=== PATIENT | female | born 1995 | race American Indian/Alaskan Native ===

== ENCOUNTER 2019-06-19 14:38 | Emergency (ER) | payer MEDICAID ==
--- NOTE | 2019-06-19 15:02 | Event Note ---
ED Screening Note ED Screening Note: ble pain and swelling and right sided pleuritic cp s side medical sent her due to dvt and pe concerns no sob HR 102 pmh DVT--to be on lovenix; but missed appointment; this was after csec-- was on xarelto for 1 months and ran out rx lovenox- missed antibiotic for uti fe lmp months ago due 11/08 [id number] This initial assessment/diagnostic orders/clinical plan/treatment(s) is/are subject to change based on patients health status, clinical progression and re- assessment by fellow clinical providers in the ED. Further treatment and workup at subsequent clinical providers discretion. Patient/guardian urged not to elope from the ED as their condition may be serious if not clinically assessed and managed. Initial orders include: labs US
--- NOTE | 2019-06-19 16:37 | Vascular Lab Report ---
DUPLEX DOPPLER LOWER EXTREMITY VEINS, BILATERAL INDICATION: Bilateral lower extremity edema. 4 months . TECHNIQUE: Duplex doppler imaging was performed through the veins of both lower extremities using venous alberto halle and other maneuvers. COMPARISON: None available. FINDINGS: Right Common femoral vein: Negative. Right Superficial femoral vein: Negative. Right Popliteal vein: Negative. Right Calf veins: Negative. Left Common femoral vein: Negative. Left Superficial femoral vein: Negative. Left Popliteal vein: Negative. Left Calf veins: Negative. Additional findings: There is no evidence of a popliteal cyst or other abnormality. IMPRESSION: No sonographic evidence for DVT in either lower extremity. Signer Name: Brennan Johnson MD Signed: 06/19/2019 4:32 PM Workstation Name: [id number]
[2019-06-19 17:09] LABS: Hematocrit 31.1 % (30.3-42.9); Hemoglobin 10.3 gm/dl (10.1-14.3); Mean Corpuscular HGB Conc 33 % (30-34); Mean Corpuscular Volume 74 fl (79-97); Platelet Count 306 K/mm3 (140-440); Red Cell Distribution Width 17.4 % (13.2-15.2)
--- NOTE | 2019-06-19 17:24 | Emergency Department Report ---
HPI - General Chief Complaint: Extremity Problem,Nontraumatic Time Seen by Provider: 06/19/19 14:58 - HPI HPI: 23-year-old female presents to the emergency department with a complaint of some pain in her bilateral legs, left greater than right. She says that mostly occurs when she first wakes up but will go away after she moves or stretches her legs. However he does have a previous history from a DVT status post in February 2017 and therefore she wanted to make sure that this was not another blood clot. She is not currently on any blood thinners. She is currently at about 19 weeks. She follows with [place] for [facility] [employer] and Dr. Sylvia Landry. She was seen there today and diagnosed with a urinary tract infection and has a prescription for antibiotics waiting for her at the pharmacy. She has no complaints of any pelvic pain, vaginal bleeding, vaginal discharge, nausea, vomiting or fever. She denies any swelling or skin color change to the legs. No recent travel. ED Past Medical Hx - Past Medical History Hx Hypertension: No Hx Diabetes: No Hx Deep Vein Thrombosis: Yes Hx Renal Disease: No Hx Sickle Cell Disease: No Hx Seizures: No Hx Asthma: No - Surgical History Past Surgical History?: Yes Additional Surgical History: C section - Social History Smoking Status: Current Every Day Smoker Substance Use Type: None - Medications Home Medications: Home Medications Medication Instructions Recorded Confirmed Last Taken Type Acetaminophen [Acetaminophen TAB] 500 mg PO Q4HR PRN #30 tablet 07/03/16 Unknown Rx Nitrofurantoin Edwards/M-Cryst 100 mg PO Q12HR #10 capsule 07/03/16 Unknown Rx [Macrobid CAP] Pnv No.95/Ferrous Fum/Folic AC 1 each PO DAILY #30 tablet 07/03/16 Unknown Rx [ Vitamin Tablet] ED Review of Systems ROS: Stated complaint: LFT SIDE PAIN/POSS BLOOD CLOT Other details as noted in HPI Comment: All other systems reviewed and negative Constitutional: denies: chills, fever Eyes: denies: eye pain, vision change ENT: denies: ear pain, throat pain Respiratory: denies: cough, shortness of breath Cardiovascular: denies: chest pain, palpitations Gastrointestinal: denies: abdominal pain, vomiting Genitourinary: denies: dysuria, discharge Musculoskeletal: myalgia. denies: joint swelling Skin: denies: rash, lesions Neurological: denies: headache, weakness, numbness Physical Exam - Physical Exam Vital Signs: Vital Signs 06/19/19 14:59 Temperature 98.3 F Pulse Rate 102 H Respiratory 18 Rate Blood Pressure 127/70 O2 Sat by Pulse 99 Oximetry Physical Exam: GENERAL: The patient is well-developed well-nourished. HENT: Normocephalic. Atraumatic. Patient has moist mucous membranes. EYES: Extraocular motions are intact. NECK: Supple. Trachea is midline. CHEST/LUNGS: Clear to auscultation. There is no respiratory distress noted. HEART/CARDIOVASCULAR: Regular. There is no tachycardia. There is no murmur. ABDOMEN: Abdomen is soft, nontender. Patient has normal bowel sounds. SKIN: Skin is warm and dry. NEURO: The patient is awake, alert, and oriented. The patient is cooperative. The patient has no focal neurologic deficits. The patient has normal speech. MUSCULOSKELETAL: There is no tenderness or deformity. There is no limitation range of motion. There is no evidence of acute injury. ED Course Vital Signs 06/19/19 14:59 Temperature 98.3 F Pulse Rate 102 H Respiratory 18 Rate Blood Pressure 127/70 O2 Sat by Pulse 99 Oximetry ED Medical Decision Making - Lab Data Result diagrams: 06/19/19 16:44 06/19/19 16:44 - EKG Data -: EKG Interpreted by Nd EKG shows normal: sinus rhythm, axis, intervals, QRS complexes, ST-T waves (t wave inversion to septal leads) Rate: normal - EKG Data When compared to previous EKG there are: previous EKG unavailable Interpretation: other (Sinus, t wave inversions to septal leads. No STEMI) - Radiology Data Radiology results: report reviewed DUPLEX DOPPLER LOWER EXTREMITY VEINS, BILATERAL INDICATION: Bilateral lower extremity edema. 4 months . TECHNIQUE: Duplex doppler imaging was performed through the veins of both lower extremities using venous compression and other maneuvers. COMPARISON: None available. FINDINGS: Right Common femoral vein: Negative. Right Superficial femoral vein: Negative. Right Popliteal vein: Negative. Right Calf veins: Negative. Left Common femoral vein: Negative. Left Superficial femoral vein: Negative. Left Popliteal vein: Negative. Left Calf veins: Negative. Additional findings: There is no evidence of a popliteal cyst or other abnormality. IMPRESSION: No sonographic evidence for DVT in either lower extremity. - Medical Decision Making This patient was sent in by her [employer] service for some leg pain that she's been having to rule out a DVT. She does have a history of a DVT status post C-se ction 2 years ago. She denies any swelling or skin color change. At this time, she actually denies any pain whatsoever. She thinks it could be related to her mattress or how she is sleeping. The pains worsen or begin forcing in the morning and seemed to improve when she moves around or stretches the legs. Bilateral lower extremity venous Dopplers were completed that were negative for signs of acute DVT. Her labs were unremarkable CBC and BMP. The patient had her evaluated at the [facility] [employer] office earlier today and she denies any pelvic pain, vaginal bleeding or discharge, abdominal pain. Vital signs stable throughout her ED course. For some reason, the patient had an EKG done through triage that does not show any signs of ST elevation SD. Patient will return to the emergency Department with any worsening of her symptoms or any acute distress. - Differential Diagnosis DVT, muscle spasms, dehydration, electrolyte abnormalities Critical Care Time: No Critical care attestation.: If time is entered above; I have spent that time in minutes in the direct care of this critically ill patient, excluding procedure time. ED Disposition Clinical Impression: Qualifiers: Weeks of gestation: 19 weeks Qualified Code(s): Z3A.19 - 19 weeks gestation of Thigh pain Qualifiers: Laterality: left Qualified Code(s): M79.652 - Pain in left thigh Disposition: DC-01 TO HOME OR SELFCARE Is pt being admited?: No Condition: Stable Instructions: (ED), Arthralgia (ED) Additional Instructions: Please follow-up with your primary care physician and [employer]. Continue taking your vitamins. You can take Tylenol, using weight-based dosing on the back of the bottle, as needed for any discomfort. Return to the emergency Department with any worsening of your symptoms or any acute distress. Referrals: [facility] [Outside] - 2-3 Days Time of Disposition: 18:25
[2019-06-19 18:00] LABS: Alanine Aminotransferase 5 units/L (7-56); Albumin 3.7 g/dL (3.9-5); BUN/Creatinine Ratio 12; Blood Urea Nitrogen 6 mg/dL (7-17); Calcium 9.2 mg/dL (8.4-10.2); Hemolysis Index 9
[2019-06-19 19:40] VITALS: BP 107/56
== END 2019-06-19 17:30 | disposition home or self-care (01) ==
LOC: ED 14:38
DX: O26.892 Other specified pregnancy related conditions, second trimester (principal); M79.604 Pain in right leg; M79.605 Pain in left leg; M79.652 Pain in left thigh; O99.331 Smoking (tobacco) complicating pregnancy, first trimester; Z86.718 Personal history of other venous thrombosis and embolism; Z79.01 Long term (current) use of anticoagulants; Z79.899 Other long term (current) drug therapy
CPT/HCPCS: 36415; 80053; 85027; 93005; 93010; 93970

== ENCOUNTER 2019-11-14 20:47 | Emergency (ER) | payer MEDICAID ==
[2019-11-14 22:57] VITALS: BP 177/105
[2019-11-14 23:35] LABS: Basophils % (Auto) 0.6 % (0.0-1.8); Eosinophils % (Auto) 0.5 % (0.0-4.3); Hematocrit 31.7 % (30.3-42.9); Lymphocytes # (Auto) 1.2 K/mm3 (1.2-5.4); Lymphocytes % (Auto) 16.7 % (13.4-35.0); Mean Corpuscular HGB Conc 32 % (30-34); Mean Corpuscular Volume 71 fl (79-97); Monocytes # (Auto) 0.6 K/mm3 (0.0-0.8); Monocytes % (Auto) 8.8 % (0.0-7.3); Platelet Count 342 K/mm3 (140-440); Red Blood Count 4.47 M/mm3 (3.65-5.03); Red Cell Distribution Width 17.7 % (13.2-15.2)
[2019-11-14 23:58] LABS: Alanine Aminotransferase 11 units/L (7-56); BUN/Creatinine Ratio 18; Blood Urea Nitrogen 11 mg/dL (7-17); Calcium 9.3 mg/dL (8.4-10.2); Hemolysis Index 0
[2019-11-15 00:38] LABS: Bacteria,Urine 1+ /HPF (Negative); Bilirubin,Urine NEG (Negative); Blood,Urine SM (Negative); Color,Urine Yellow (Yellow); Mucus,Urine 1+ /HPF; Protein,Urine <15 mg/dL mg/dL (Negative); Urobilinogen,Urine < 2.0 mg/dL (<2.0)
--- NOTE | 2019-11-15 02:06 | Emergency Department Report ---
ED General Adult HPI - General Chief complaint: Wound/Laceration Stated complaint: POST C SECTION DRAINAGE Time Seen by Provider: 11/15/19 01:47 Source: patient Mode of arrival: Ambulatory Limitations: No Limitations - History of Present Illness Initial comments: Patient is a 24-year-old Russian female is presenting with 2 complaints. Complaint #1 is that the patient has right sided toothache with some swelling to the jaw that started yesterday. Patient states she had a cracked tooth in this area for some time however there is now swelling and pain which tries to chew. She denies nausea vomiting difficulty swallowing fevers or chills. She does state that the pain radiates to the right ear and has caused her to have a generalized headache as well. Complaint #2 is that she had a on 10/31/2019. Patient states that the left lateral area which has opened and is currently draining fluid. States she has no pain. - Related Data Previous Rx's Medication Instructions Recorded Last Taken Type Acetaminophen [Acetaminophen TAB] 500 mg PO Q4HR PRN #30 tablet 07/03/16 Unknown Rx Nitrofurantoin Tillman/M-Cryst 100 mg PO Q12HR #10 capsule 07/03/16 Unknown Rx [Macrobid CAP] Pnv No.95/Ferrous Fum/Folic AC 1 each PO DAILY #30 tablet 07/03/16 Unknown Rx [ Vitamin Tablet] Ferrous Sulfate [Feosol 325 MG tab] 325 mg PO BID #60 tablet 11/02/19 Unknown Rx HYDROcodone/APAP 5-325 [Gibson 1 each PO Q6HR PRN #30 tablet 11/02/19 Unknown Rx 5-325 mg TAB] Ibuprofen [Motrin 800 MG tab] 800 mg PO Q6H PRN #30 tablet 11/02/19 Unknown Rx Vit-Fe Fumar-FA [ 1 each PO QDAY #30 tablet 11/02/19 Unknown Rx Vitamin] Clindamycin [Clindamycin CAP] 300 mg PO Q8H #21 cap 11/15/19 Unknown Rx Ibuprofen [Motrin 600 MG tab] 600 mg PO Q8H PRN #20 tablet 11/15/19 Unknown Rx Allergies Allergy/AdvReac Type Severity Reaction Status Date / Time No Known Allergies Allergy Verified 07/02/16 23:42 ED Review of Systems ROS: Stated complaint: POST C SECTION DRAINAGE Other details as noted in HPI Comment: All other systems reviewed and negative ED Past Medical Hx - Past Medical History Previous Medical History?: No Hx Hypertension: No Hx Heart Attack/AMI: No Hx Diabetes: No Hx Deep Vein Thrombosis: No Hx Liver Disease: No Hx Renal Disease: No Hx Sickle Cell Disease: No Hx Seizures: No Hx Asthma: No Hx COPD: No Hx HIV: No - Surgical History Past Surgical History?: Yes Hx Pacemaker: No Hx Internal Defibrillator: No Additional Surgical History: C section - Social History Smoking Status: Never Smoker Substance Use Type: None - Medications Home Medications: Home Medications Medication Instructions Recorded Confirmed Last Taken Type Acetaminophen [Acetaminophen TAB] 500 mg PO Q4HR PRN #30 tablet 07/03/16 10/30/19 Unknown Rx Nitrofurantoin Tillman/M-Cryst 100 mg PO Q12HR #10 capsule 07/03/16 10/30/19 Unknown Rx [Macrobid CAP] Pnv No.95/Ferrous Fum/Folic AC 1 each PO DAILY #30 tablet 07/03/16 10/30/19 Unknown Rx [ Vitamin Tablet] Ferrous Sulfate [Feosol 325 MG tab] 325 mg PO BID #60 tablet 11/02/19 Unknown Rx HYDROcodone/APAP 5-325 [Gibson 1 each PO Q6HR PRN #30 tablet 11/02/19 Unknown Rx 5-325 mg TAB] Ibuprofen [Motrin 800 MG tab] 800 mg PO Q6H PRN #30 tablet 11/02/19 Unknown Rx Vit-Fe Fumar-FA [ 1 each PO QDAY #30 tablet 11/02/19 Unknown Rx Vitamin] Clindamycin [Clindamycin CAP] 300 mg PO Q8H #21 cap 11/15/19 Unknown Rx Ibuprofen [Motrin 600 MG tab] 600 mg PO Q8H PRN #20 tablet 11/15/19 Unknown Rx ED Physical Exam - General Limitations: No Limitations General appearance: alert, in no apparent distress - Head Head exam: Present: atraumatic, normocephalic - Expanded Head Exam Expanded 1 - With tenderness and swelling at the angle of the jaw. - Eye Eye exam: Present: normal appearance - ENT ENT exam: Present: mucous membranes moist - Expanded ENT Exam Expanded 1 - Fractured, Dental Tenderness - Neck Neck exam: Present: normal inspection - Respiratory Respiratory exam: Present: normal lung sounds bilaterally. Absent: respiratory distress, wheezes, rales, rhonchi - Cardiovascular Cardiovascular Exam: Present: regular rate, normal rhythm, normal heart sounds. Absent: systolic murmur, diastolic murmur, rubs, gallop - GI/Abdominal GI/Abdominal exam: Present: soft, normal bowel sounds, other (patient has a healing section scar. There is 2 cm wound dehiscence on the left lateral edge. There is no purulent drainage. There is some serous fluid on the gauze is overlying the wound. Good granulation tissue present.). Absent: distended, tenderness, guarding - Extremities Exam Extremities exam: Present: normal inspection - Back Exam Back exam: Present: normal inspection - Neurological Exam Neurological exam: Present: alert, oriented X3 - Psychiatric Psychiatric exam: Present: normal affect, normal mood - Skin Skin exam: Present: warm, dry, intact, normal color. Absent: rash ED Course Vital Signs 11/14/19 22:28 Temperature 99.0 F Pulse Rate 86 Respiratory 18 Rate Blood Pressure 177/105 O2 Sat by Pulse 99 Oximetry ED Medical Decision Making - Lab Data Result diagrams: 11/14/19 23:06 11/14/19 23:06 Lab Results 11/14/19 11/14/19 11/15/19 Range/Units 23:06 23:06 00:02 WBC 6.9 (4.5-11.0) K/mm3 RBC 4.47 (3.65-5.03) M/mm3 Hgb 10.0 L (10.1-14.3) gm/dl Hct 31.7 (30.3-42.9) % MCV 71 L (79-97) fl MCH 22 L (28-32) pg MCHC 32 (30-34) % RDW 17.7 H (13.2-15.2) % Plt Count 342 (140-440) K/mm3 Lymph % (Auto) 16.7 (13.4-35.0) % Tillman % (Auto) 8.8 H (0.0-7.3) % Eos % (Auto) 0.5 (0.0-4.3) % Baso % (Auto) 0.6 (0.0-1.8) % Lymph # 1.2 (1.2-5.4) K/mm3 Tillman # 0.6 (0.0-0.8) K/mm3 Eos # 0.0 (0.0-0.4) K/mm3 Baso # 0.0 (0.0-0.1) K/mm3 Seg Neutrophils % 73.4 H (40.0-70.0) % Seg Neutrophils # 5.1 (1.8-7.7) K/mm3 Sodium 143 (137-145) mmol/L Potassium 4.1 (3.6-5.0) mmol/L Chloride 106.5 (98-107) mmol/L Carbon Dioxide 21 L (22-30) mmol/L Anion Gap 20 mmol/L BUN 11 (7-17) mg/dL Creatinine 0.6 L (0.7-1.2) mg/dL Estimated GFR > 60 ml/min BUN/Creatinine Ratio 18 % Glucose 92 (65-100) mg/dL Calcium 9.3 (8.4-10.2) mg/dL Magnesium 2.00 (1.7-2.3) mg/dL Total Bilirubin 0.30 (0.1-1.2) mg/dL AST 16 (5-40) units/L ALT 11 (7-56) units/L Alkaline Phosphatase 78 (35-129) units/L Total Protein 6.9 (6.3-8.2) g/dL Albumin 4.0 (3.9-5) g/dL Albumin/Globulin Ratio 1.4 % Urine Color Yellow (Yellow) Urine Turbidity Slightly-cloudy (Clear) Urine pH 5.0 (5.0-7.0) Ur Specific Radisson 1.021 (1.003-1.030) Urine Protein <15 mg/dl (Negative) mg/dL Urine Glucose (UA) Neg (Negative) mg/dL Urine Ketones Neg (Negative) mg/dL Urine Blood Sm (Negative) Urine Nitrite Neg (Negative) Urine Bilirubin Neg (Negative) Urine Urobilinogen < 2.0 (<2.0) mg/dL Ur Leukocyte Esterase Neg (Negative) Urine WBC (Auto) 5.0 (0.0-6.0) /HPF Urine RBC (Auto) 5.0 (0.0-6.0) /HPF U Epithel Cells (Auto) 2.0 (0-13.0) /HPF Urine Bacteria (Auto) 1+ (Negative) /HPF Urine Mucus 1+ /HPF - Medical Decision Making Regarding the patient's elevated blood pressure the patient had a urinalysis done to rule out proteinuria. There is no proteins found. Patient's elevated blood pressure likely secondary to pain from her dental abscess with facial cellulitis. After receiving pain control in the waiting room the patient's blood pressure was 110/60 repeat vital signs. Patient has normal white count is no evidence of infection to her scar. There is some slight wound dehiscence. Steri-Strips were used to hold the skin edges and good approximation. Patient be discharged home. Patient will be treated for dental abscess with facial cellulitis and will be referred to oral surgery. Critical care attestation.: If time is entered above; I have spent that time in minutes in the direct care of this critically ill patient, excluding procedure time. ED Disposition Clinical Impression: Facial cellulitis, Dental abscess, Wound dehiscence Disposition: TO HOME OR SELFCARE Is pt being admited?: No Does the pt Need Aspirin: No Condition: Stable Instructions: Acute Wound Care (ED), Dental Abscess (ED) Referrals: GEOFF HARMAN D[facility] [Staff Physician] - 3-5 Days Time of Disposition: 02:07
[2019-11-15] MEDS: IBUPROFEN 800 MG TAB PO ONE ×2 (02:49→03:01)
== END 2019-11-15 03:01 | disposition home or self-care (01) ==
LOC: ED 20:47
DX: T81.30XA Disruption of wound, unspecified, initial encounter (principal); K04.7 Periapical abscess without sinus; L03.211 Cellulitis of face; X58.XXXA Exposure to other specified factors, initial encounter
CPT/HCPCS: 36415; 80053; 81001; 83735; 85025

== ENCOUNTER 2021-02-07 17:19 | Emergency (ER) | payer MEDICAID ==
[2021-02-07 17:36] VITALS: BP 147/78
--- NOTE | 2021-02-07 20:52 | Emergency Department Report ---
ED General Adult HPI - General Chief complaint: Chest Pain Stated complaint: CHEST PAIN/LT ARM/LEG PAIN/HEADACHE Time Seen by Provider: 02/07/21 20:46 Source: patient, family Mode of arrival: Ambulatory Limitations: No Limitations - History of Present Illness Initial comments: Patient is a 25-year-old -[place] female with no known medical history 5-pack-year smoker occasional EtOH who presents for cough chest pain with cough stress. Patient states symptoms of chest pain exacerbated by worrying and anxiety patient states history of the same for the past month. Patient states occasional alcohol smokes cigarettes no marijuana. There is been no fever, chills, there is no nausea vomiting, no diaphoresis, no dizziness or lightheadedness. Last menstrual cycle 2 weeks ago. Patient states she felt like this when with previous 1 year ago. Severity scale (0 -10): 5 - Related Data Previous Rx's Medication Instructions Recorded Last Taken Type Acetaminophen [Acetaminophen TAB] 500 mg PO Q4HR PRN #30 tablet 07/03/16 Unknown Rx Nitrofurantoin [place]/M-Cryst 100 mg PO Q12HR #10 capsule 07/03/16 Unknown Rx [Macrobid CAP] Pnv No.95/Ferrous Fum/Folic AC 1 each PO DAILY #30 tablet 07/03/16 Unknown Rx [ Vitamin Tablet] Ferrous Sulfate [Feosol 325 MG tab] 325 mg PO BID #60 tablet 11/02/19 Unknown Rx HYDROcodone/APAP 5-325 [[place] 1 each PO Q6HR PRN #30 tablet 11/02/19 Unknown Rx 5-325 mg TAB] Ibuprofen [Motrin 800 MG tab] 800 mg PO Q6H PRN #30 tablet 11/02/19 Unknown Rx Vit-Fe Fumar-FA [ 1 each PO QDAY #30 tablet 11/02/19 Unknown Rx Vitamin] Clindamycin [Clindamycin CAP] 300 mg PO Q8H #21 cap 11/15/19 Unknown Rx Ibuprofen [Motrin 600 MG tab] 600 mg PO Q8H PRN #20 tablet 11/15/19 Unknown Rx Ibuprofen [Motrin 800 MG tab] 800 mg PO Q8HR PRN #30 tablet 02/07/21 Unknown Rx Allergies Allergy/AdvReac Type Severity Reaction Status Date / Time No Known Allergies Allergy Verified 07/02/16 23:42 ED Review of Systems ROS: Stated complaint: CHEST PAIN/LT ARM/LEG PAIN/HEADACHE Other details as noted in HPI Constitutional: denies: chills, fever, malaise Eyes: denies: eye pain, eye discharge, vision change ENT: denies: ear pain, throat pain Respiratory: cough. denies: shortness of breath, wheezing Cardiovascular: chest pain Endocrine: no symptoms reported Gastrointestinal: denies: abdominal pain, nausea, vomiting, diarrhea Genitourinary: denies: urgency, dysuria, discharge Musculoskeletal: back pain (right low back pain ). denies: joint swelling, arthralgia Skin: denies: rash, lesions Neurological: headache. denies: weakness, paresthesias, vertigo Psychiatric: denies: anxiety, depression Hematological/Lymphatic: denies: easy bleeding, easy bruising ED Past Medical Hx - Past Medical History Hx Hypertension: No Hx Heart Attack/AMI: No Hx Diabetes: No Hx Deep Vein Thrombosis: Yes Hx Liver Disease: No Hx Renal Disease: No Hx Sickle Cell Disease: No Hx Seizures: No Hx Asthma: No Hx COPD: No Hx HIV: No - Surgical History Hx Pacemaker: No Hx Internal Defibrillator: No Additional Surgical History: C section - Social History Smoking Status: Never Smoker Substance Use Type: None - Medications Home Medications: Home Medications Medication Instructions Recorded Confirmed Last Taken Type Acetaminophen [Acetaminophen TAB] 500 mg PO Q4HR PRN #30 tablet 07/03/16 10/30/19 Unknown Rx Nitrofurantoin [place]/M-Cryst 100 mg PO Q12HR #10 capsule 07/03/16 10/30/19 Unknown Rx [Macrobid CAP] Pnv No.95/Ferrous Fum/Folic AC 1 each PO DAILY #30 tablet 07/03/16 10/30/19 Unknown Rx [ Vitamin Tablet] Ferrous Sulfate [Feosol 325 MG tab] 325 mg PO BID #60 tablet 11/02/19 Unknown Rx HYDROcodone/APAP 5-325 [[place] 1 each PO Q6HR PRN #30 tablet 11/02/19 Unknown Rx 5-325 mg TAB] Ibuprofen [Motrin 800 MG tab] 800 mg PO Q6H PRN #30 tablet 11/02/19 Unknown Rx Vit-Fe Fumar-FA [ 1 each PO QDAY #30 tablet 11/02/19 Unknown Rx Vitamin] Clindamycin [Clindamycin CAP] 300 mg PO Q8H #21 cap 11/15/19 Unknown Rx Ibuprofen [Motrin 600 MG tab] 600 mg PO Q8H PRN #20 tablet 11/15/19 Unknown Rx Ibuprofen [Motrin 800 MG tab] 800 mg PO Q8HR PRN #30 tablet 02/07/21 Unknown Rx ED Physical Exam - General Limitations: No Limitations General appearance: alert, in no apparent distress - Head Head exam: Present: normocephalic, normal inspection - Eye Eye exam: Present: normal appearance, PERRL, EOMI Pupils: Present: normal accommodation - ENT ENT exam: Present: mucous membranes moist - Neck Neck exam: Present: normal inspection, full ROM. Absent: tenderness, lymphadenopathy - Respiratory Respiratory exam: Present: normal lung sounds bilaterally, chest wall tenderness (anterior lateral chest wall pain to deep palpation , no bruising, no crepitus, no stepoff ). Absent: respiratory distress, wheezes, stridor - Cardiovascular Cardiovascular Exam: Present: regular rate, normal rhythm, normal heart sounds. Absent: systolic murmur, diastolic murmur, rubs, gallop - GI/Abdominal GI/Abdominal exam: Present: soft, normal bowel sounds - Rectal Rectal exam: Present: deferred - Extremities Exam Extremities exam: Present: normal inspection, full ROM, normal capillary refill. Absent: tenderness, pedal edema, calf tenderness - Back Exam Back exam: Present: normal inspection, full ROM. Absent: tenderness, CVA tenderness (R), CVA tenderness (L) - Neurological Exam Neurological exam: Present: alert, oriented X3, CN II-XII intact, normal gait - Expanded Neurological Exam Expanded Patient oriented to: Present: person, place, time Speech: Present: fluid speech Motor strength exam: RUE: 5, LUE: 5, RLE: 5, LLE: 5 Best Eye Response (Stephanie): (4) open spontaneously Best Motor Response ([place]): (6) obeys commands Best Verbal Response ([place]): (5) oriented Stephanie Total: 15 - Psychiatric Psychiatric exam: Present: normal affect, normal mood - Skin Skin exam: Present: warm, dry, intact, normal color. Absent: rash ED Course Vital Signs 02/07/21 17:35 Temperature 98.8 F Pulse Rate 93 H Respiratory 20 Rate Blood Pressure 147/78 [Right] O2 Sat by Pulse 99 Oximetry ED Medical Decision Making - Lab Data Labs 02/07/21 Unknown Urine Color Yellow Urine Turbidity Slightly-cloudy Urine pH 6.0 Ur Specific [place] 1.017 Urine Protein <15 mg/dl Urine Glucose (UA) Neg Urine Ketones Neg Urine Blood Mod Urine Nitrite Neg Urine Bilirubin Neg Urine Urobilinogen 2.0 Ur Leukocyte Esterase Neg Urine WBC (Auto) 1.0 Urine RBC (Auto) 15.0 U Epithel Cells (Auto) 14.0 H Urine Mucus Few Urine Yeast (Budding) Few Urine HCG, Qual Negative - EKG Data EKG shows normal: sinus rhythm, axis, intervals, QRS complexes Rate: normal - EKG Data When compared to previous EKG there are: previous EKG unavailable Interpretation: normal EKG (NSR no ST Elevated NC , EKG interp by ED attending ) - Radiology Data Radiology results: report reviewed, image reviewed Ordering Physician: FEDERICO PACE NP Date of Service: 02/07/21 Procedure(s): XR chest routine 2V Accession Number(s): [id number] cc: FEDERICO PACE NP Fluoro Time In Minutes: CHEST 2 VIEWS INDICATION / CLINICAL INFORMATION: chest pain. COMPARISON: None available. FINDINGS: SUPPORT DEVICES: None. HEART / MEDIASTINUM: No significant abnormality. LUNGS / PLEURA: No significant pulmonary or pleural abnormality. No pneumothora x. ADDITIONAL FINDINGS: No significant additional findings. IMPRESSION: 1. No acute findings. Signer Name: Sen Ferrera MD Signed: 02/07/2021 10:49 PM Workstation Name: [id number] Transcribed By: SS Dictated By: Sen Ferrera MD Electronically Authenticated By: Sen Ferrera MD Signed Date/Time: 02/07/212248 DD/ 48 TD/TT: Print Cancel - Medical Decision Making Chest x-ray normal, urine normal, EKG normal sinus rhythm no ST elevated NC. This is likely stress or anxiety patient is currently alert oriented x3 there is no shortness of breath, chest pain, nausea vomiting, diaphoresis, no headache or dizziness, patient denies chest pain at this time. There is no cough fever or chills. Plan NSAIDs as needed chest wall pain. follow-up with primary care doctor in 2 to 3 days. Patient verbalized agreement and understanding of discharge plan. Patient DC'd home in stable condition at this time. Critical care attestation.: If time is entered above; I have spent that time in minutes in the direct care of this critically ill patient, excluding procedure time. ED Disposition Clinical Impression: Atypical chest pain, Stress Disposition: DC-01 TO HOME OR SELFCARE Is pt being admited?: No Does the pt Need Aspirin: No Condition: Stable Instructions: Nonspecific Chest Pain, Adult, [id number] Prescriptions: Ibuprofen [Motrin 800 MG tab] 800 mg PO Q8HR PRN #30 tablet PRN Reason: pain Referrals: JENNI MILLER MD [Primary Care Provider] - 3-5 Days Forms: Work/School Release Form(ED) Time of Disposition: 23:15
[2021-02-07 22:19] LABS: Bilirubin,Urine NEG (Negative); Blood,Urine MOD (Negative); Color,Urine Yellow (Yellow); Mucus,Urine FEW /HPF; Protein,Urine <15 mg/dL mg/dL (Negative)
[2021-02-07 22:24] LABS: HCG Qualitative,Urine Negative (Negative)
--- NOTE | 2021-02-07 22:54 | XRay Report ---
CHEST 2 VIEWS INDICATION / CLINICAL INFORMATION: chest pain. COMPARISON: None available. FINDINGS: SUPPORT DEVICES: None. HEART / MEDIASTINUM: No significant abnormality. LUNGS / PLEURA: No significant pulmonary or pleural abnormality. No pneumothorax. ADDITIONAL FINDINGS: No significant additional findings. IMPRESSION: 1. No acute findings. Signer Name: Sen Ferrera MD Signed: 02/07/2021 10:49 PM Workstation Name: [id number]
--- NOTE | 2021-02-08 12:10 | Electrocardiograph Report ---
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
== END 2021-02-07 23:00 | disposition home or self-care (01) ==
LOC: ED 17:19
DX: R07.89 Other chest pain (principal); F43.9 Reaction to severe stress, unspecified; Z79.899 Other long term (current) drug therapy
CPT/HCPCS: 71046; 81001; 81025; 93005

== ENCOUNTER 2021-10-08 19:21 | Observation (INO) | payer MEDICAID ==
[2021-10-08] MEDS ORDERED: LACTATED RINGERS 1,000 ML IV ONE (20:27)
[2021-10-08 20:29] LABS: Bilirubin,Urine NEG (Negative); Blood,Urine NEG (Negative); Color,Urine Yellow (Yellow); Mucus,Urine FEW /HPF; Protein,Urine <15 mg/dL mg/dL (Negative)
[2021-10-08 20:43] LABS: Amphetamine Screen,Urine Negative; Benzodiazepines Screen,Urine Negative; Cannabinoid Screen,Urine Negative; Cocaine Screen,Urine Negative; Methadone Screen,Urine Negative; Opiate Screen,Urine Negative
--- NOTE | 2021-10-08 22:30 | Ultrasound Report ---
ULTRASOUND OBSTETRIC COMPLETE/BIOPHYSICAL PROFILE INDICATION / CLINICAL INFORMATION: BRINA, EFW, EGA/EDC, check placenta and scar. Clinical Gestational Age (GA) in weeks.days: 37.3 TECHNIQUE: Transabdominal. COMPARISON: None available. FINDINGS: NUMBER: Single PRESENTATION: cephalic PLACENTA: anterior and free of the os. MATERNAL ADNEXA: No significant abnormality. AMNIOTIC FLUID VOLUME: normal AMNIOTIC FLUID INDEX (BRINA) in cm (if measured): 11.6 ANATOMY: Not performed. MEASUREMENTS: - Biparietal Diameter = 9.0 cm = 36.2 weeks.days - Head Circumference = 31.7 cm = 35.5 weeks.days - Abdominal Circumference = 30.5 cm = 34.3 weeks.days - Femur Length = 6.9 cm = 35.3 weeks.days - Estimated Weight (in grams, if calculated): 2577 - Heart Rate (beats per minute): 172 ADDITIONAL FINDINGS: None. AVERAGE ULTRASOUND AGE (AUA) in weeks.days = 35.3 Biophysical profile is normal at 8/8. IMPRESSION: 1. Single intrauterine with AUA of 35.3 weeks.days 2. Estimated weight 2577 g. 3. Placenta is anteriorly located and free of the os. 4. Amniotic fluid index is 11.6 cm. 5. Biophysical profile is normal at 8/8. Signer Name: Zac Peres MD Signed: 10/08/2021 10:26 PM Workstation Name: [id number]
[2021-10-08 22:58] LABS: Alanine Aminotransferase 7 units/L (7-56); Albumin 3.3 g/dL (3.9-5); Blood Urea Nitrogen 7 mg/dL (7-17); Calcium 8.9 mg/dL (8.4-10.2); Hemolysis Index 6
[2021-10-08 23:08] LABS: BUN/Creatinine Ratio 12
[2021-10-08 23:11] LABS: Basophils # (Auto) 0.2 K/mm3 (0.0-0.1); Basophils % (Auto) 2.7 % (0.0-1.8); Eosinophils % (Auto) 0.1 % (0.0-4.3); Hematocrit 28.7 % (30.3-42.9); Lymphocytes # (Auto) 1.1 K/mm3 (1.2-5.4); Lymphocytes % (Auto) 16.1 % (13.4-35.0); Mean Corpuscular HGB Conc 31 % (30-34); Mean Corpuscular Volume 72 fl (79-97); Monocytes # (Auto) 0.6 K/mm3 (0.0-0.8); Monocytes % (Auto) 8.8 % (0.0-7.3); Platelet Count 293 K/mm3 (140-440); Red Blood Count 3.98 M/mm3 (3.65-5.03); Red Cell Distribution Width 16.4 % (13.2-15.2)
[2021-10-08 23:29] LABS: INR 0.9 (0.87-1.13); Partial Thromboplastin Time 26.9 Sec. (24.2-36.6)
[2021-10-09] MEDS ORDERED: METOCLOPRAMIDE 10 MG/2 ML INJ IV ONE (00:30)
[2021-10-09] MEDS ORDERED: LACTATED RINGERS 1,000 ML IV SCH (00:30)
[2021-10-09] MEDS ORDERED: BICITRA ORAL LIQD 30ML PO ONE (00:30)
[2021-10-09] MEDS ORDERED: FAMOTIDINE 20 MG/2 ML INJ IV ONE (00:30)
--- NOTE | 2021-10-09 00:41 | History and Physical Report ---
History of Present Illness Date of examination: 10/09/21 Date of admission: 10/09/21 Chief complaint: abdominal pain that started at 5pm on 10/08/21 History of present illness: at 37.1wks by EDC 10/29/21 per pt report. Pt c/o intermittent abdominal pain, denies LOF or vag bleed. Pt also states that she has a history of DVT to one leg for which she was diagnosed after her first preg but did not get the lovenox since March 2021 for this . Pt denies chest pain, calf pain or shortness of breath. Pt had her last meal at about 5-6pm. Nurse notified me of sometimes FHR tracing with periods of 170-180's and loss of contact and the contractions every 2-3min Past History Past Medical History: other (morbid obesity and DVT to unilateral lower extremity) Past Surgical History: section (x2) Social history: smoking (quit in 12/2020) - Obstetrical History Expected Date of Delivery: 10/29/21 Actual Gestation: 37 Week(s) 1 Day(s) : 4 Hx # Term Pregnancies: 2 Spontaneous Abortions: 1 Number of Living Children: 2 Medications and Allergies Allergies Allergy/AdvReac Type Severity Reaction Status Date / Time No Known Allergies Allergy Verified 07/02/16 23:42 Home Medications Medication Instructions Recorded Confirmed Last Taken Type Acetaminophen [Acetaminophen TAB] 500 mg PO Q4HR PRN #30 tablet 07/03/16 10/30/19 Unknown Rx Nitrofurantoin [place]/M-Cryst 100 mg PO Q12HR #10 capsule 07/03/16 10/30/19 Unknown Rx [Macrobid CAP] Pnv No.95/Ferrous Fum/Folic AC 1 each PO DAILY #30 tablet 07/03/16 10/30/19 Unknown Rx [ Vitamin Tablet] Ferrous Sulfate [Feosol 325 MG tab] 325 mg PO BID #60 tablet 11/02/19 Unknown Rx HYDROcodone/APAP 5-325 [[place] 1 each PO Q6HR PRN #30 tablet 11/02/19 Unknown Rx 5-325 mg TAB] Ibuprofen [Motrin 800 MG tab] 800 mg PO Q6H PRN #30 tablet 11/02/19 Unknown Rx Vit-Fe Fumar-FA [ 1 each PO QDAY #30 tablet 11/02/19 Unknown Rx Vitamin] Clindamycin [Clindamycin CAP] 300 mg PO Q8H #21 cap 11/15/19 Unknown Rx Ibuprofen [Motrin 600 MG tab] 600 mg PO Q8H PRN #20 tablet 11/15/19 Unknown Rx Ibuprofen [Motrin 800 MG tab] 800 mg PO Q8HR PRN #30 tablet 02/07/21 Unknown Rx Active Meds: Active Medications Citric Acid/Sodium Citrate (Bicitra Oral Liqd 30ml) 30 ml PO ONCE ONE Stop: 10/09/21 00:31 Famotidine (Famotidine 20 Mg/2 Ml Inj) 20 mg IV ONCE ONE Stop: 10/09/21 00:31 Lactated Ringer's (Lactated Ringers) 1,000 mls @ 2,250 mls/hr IV PREOP JEANETTE Stop: 10/10/21 00:57 Oxytocin/Sodium Chloride (Pitocin/Ns 30 Unit/500ml) 30 units in 500 mls @ 0 mls/hr IV TITR JEANETTE; Protocol Metoclopramide HCl (Metoclopramide 10 Mg/2 Ml Inj) 10 mg IV ONCE ONE Stop: 10/09/21 00:31 Review of Systems All systems: negative (abdominal pain) - Vital Signs Vital signs: Vital Signs Pulse BP Pulse Ox 84 143/70 99 10/08/21 19:37 10/08/21 19:37 10/08/21 19:37 Temp Pulse Resp BP Pulse Ox 98.1 F 84 18 143/70 99 10/08/21 19:38 10/09/21 00:37 10/08/21 19:38 10/08/21 19:38 10/09/21 00:37 - Physical Exam Breasts: Positive: deferred Cardiovascular: Regular rate Lungs: Positive: Normal air movement Abdomen: Positive: normal appearance, soft Genitourinary (Female): Positive: normal external genitalia Vulva: both: normal Vagina: Positive: normal moisture Uterus: Positive: enlarged (non-tender, gravid) - Obstetrical FHR: category 1 Uterine Contraction Monitor Mode: External Cervical Dilatation: 0 (not c/w with triage nurse 1cm; Internal os closed for me) Cervical Effacement Percentage: 0 station: -3 Uterine Contraction Pattern: Regular Results Result Diagrams: 10/08/21 21:10 10/08/21 21:10 Abnormal lab results 10/08/21 10/08/21 10/08/21 Range/Units 21:10 21:10 21:10 Hgb 9.0 L (10.1-14.3) gm/dl Hct 28.7 L (30.3-42.9) % MCV 72 L (79-97) fl MCH 23 L (28-32) pg RDW 16.4 H (13.2-15.2) % [place] % (Auto) 8.8 H (0.0-7.3) % Baso % (Auto) 2.7 H (0.0-1.8) % Lymph # (Auto) 1.1 L (1.2-5.4) K/mm3 Baso # (Auto) 0.2 H (0.0-0.1) K/mm3 Seg Neutrophils % 72.3 H (40.0-70.0) % D-Dimer 511.56 H (0-234) ng/mlDDU Sodium 136 L (137-145) mmol/L Carbon Dioxide 20 L (22-30) mmol/L Alkaline Phosphatase 137 H (35-129) units/L Albumin 3.3 L (3.9-5) g/dL All other labs normal. Assessment and Plan Term preg with previous c/section x2 and now with frequent contractions and cervix closed; H/O DVT, non-compliant; Anemia noted in labs 1. Admit for observation and obtain records 2. U/S with EGA 35.3wks and BPP 8/8 with BRINA 11 3. Will need 2u PRBC urgently if c/section to be done; will order and place on hold 4. Will check venous dopplers bilaterally prior to placing SCDs 5. Consents obtained for emergent section for NRFHR, however will wait until for now with FHR category I and pt not feeling frequent contractions. Will continue IV hydration Plan of care discussed and FOB present per pt request. All questions encouraged and answered
[2021-10-09] MEDS ORDERED: ceFAZolin/Water 2 GM/20 ML 0 GM/0 ML SYRINGE IV ONE (00:49)
[2021-10-09 01:00] LABS: Uric Acid 4.6 mg/dL (3.5-7.6)
[2021-10-09] MEDS ORDERED: OXYTOCIN DRIP 30 UNITS/500 ML BAG IV SCH (01:00)
--- NOTE | 2021-10-09 01:30 | Anesthesia Day of Surgery ---
Anesthesia Day of Surgery - Day of Surgery Patient Examined: Yes Patient H&P Reviewed: Yes Patient is NPO: Yes Beta Blockers: Yes Cardiac Clearance: No Pulmonary Clearance: No Matthew's Test: Negative
--- NOTE | 2021-10-09 01:35 | Anesthesia Consultation ---
Anesthesia Consult and Med Hx Date of service: 10/09/21 - Airway Anesthetic Teeth Evaluation: Poor ROM Head & Neck: Adequate Mental/Hyoid Distance: Adequate Mallampati Class: Class II Intubation Access Assessment: Probably Good - Pulmonary Exam CTA: Yes - Cardiac Exam Cardiac Exam: RRR - Pre-Operative Health Status ASA Pre-Surgery Classification: ASA3 ( b) - Pulmonary Hx Smoking: Yes (QUIT 2018) Hx Asthma: No Hx Respiratory Symptoms: No SOB: No (DVT POST CSECTION) COPD: No Home Oxygen Therapy: No Hx Pneumonia: No Hx Sleep Apnea: No - Cardiovascular System Hx Hypertension: No Hx Coronary Artery Disease: No Hx Heart Attack/AMI: No Hx Angina: No Hx Percutaneous Transluminal Coronary Angioplasty (PTCA): No Hx Cardia Arrhythmia: No Hx Pacemaker: No Hx Internal Defibrillator: No Hx Valvular Heart Disease: No Hx Heart Murmur: No Hx Peripheral Vascular Disease: No - Central Nervous System Hx Neuromuscular Disorder: No Hx Seizures: No CVA: No Hx Back Pain: Yes Hx Psychiatric Problems: Yes (anxiety) - Gastrointestinal Hx Ulcer: No Hx Gastroesophageal Reflux Disease: Yes - Endocrine Hx Renal Disease: No Hx End Stage Renal Disease: No Hx Cirrhosis: No Hx Liver Disease: No Hx Insulin Dependent Diabetes: No Hx Non-Insulin Dependent Diabetes: No Hx Thyroid Disease: No Hx Hypothyroidism: No Hx Hyperthyroidism: No - Hematic Hx Anemia: Yes Hx Sickle Cell Disease: No - Other Systems Hx Alcohol Use: (not since ) Hx Substance Use: No Hx Cancer: No Hx Obesity: Yes
[2021-10-09] MEDS ORDERED: SODIUM CHLORIDE 0.9% 500 ML 500 ML IV ONE (02:17)
[2021-10-09 07:36] VITALS: BP 120/70
--- NOTE | 2021-10-09 07:50 | Vascular Lab Report ---
DUPLEX DOPPLER LOWER EXTREMITY VEINS, BILATERAL INDICATION / CLINICAL INFORMATION: h/o DVT and now at 37wks. TECHNIQUE: Duplex doppler imaging was performed through the veins of both lower extremities using venous alberto halle and other maneuvers. COMPARISON: None available. FINDINGS: RIGHT COMMON FEMORAL VEIN: Negative. RIGHT FEMORAL VEIN: Negative. RIGHT POPLITEAL VEIN: Negative. RIGHT CALF VEINS: Negative. LEFT COMMON FEMORAL VEIN: Negative. LEFT FEMORAL VEIN: Negative. LEFT POPLITEAL VEIN: Negative. LEFT CALF VEINS: Negative. ADDITIONAL FINDINGS: None. IMPRESSION: 1. No sonographic evidence for DVT in either lower extremity. Signer Name: David Ellington MD Signed: 10/09/2021 7:45 AM Workstation Name: [id number]
--- NOTE | 2021-10-09 08:29 | Event Note ---
Date: 10/09/21 Patient admitted with unknown dates, previous c/sectionx2 with abdominal pain. Pt not in labor, contractions resolved after IV fluids. FHT Category 1 Plan to obtain records from [facility] for appropriate dating. DC home with close follow up Schedule operative delivery at 39 weeks. Niru Valdez MD
--- NOTE | 2021-10-09 08:31 | Discharge Summary ---
Providers - Providers Date of Admission: 10/09/21 03:00 Date of discharge: 10/09/21 Attending physician: CHERELLE ROBIN Primary care physician: CHERELLE ROBIN Hospitalization Reason for admission: other (contractions,revous c/sectionx2) Hospital course: Not in labor. Condition at discharge: Stable Disposition: 01 HOME / SELF CARE / HOMELESS Plan - Provider Discharge Summary Activity: no sex for 6 weeks Diet: routine Instructions: routine Additional instructions: [] Smoking cessation referral if applicable(refer to patient education folder for contact #) [] Refer to [facility]'s [facility] Booklet Call your doctor immediately for: * Fever > 100.5 * Heavy vaginal bleeding ( >1 pad per hour) * Severe persistent headache * Shortness of breath * Reddened, hot, painful area to leg or breast * Drainage or odor from incision. * Keep incision clean and dry at all times and follow doctor's instructions regarding bathing/showering - Follow up plan Follow up: CHERELLE ROBIN MD [Primary Care Provider] - 7 Days
--- NOTE | 2021-10-09 08:58 | Event Note ---
Date: 10/09/21 pt has access to Lovenox but does not have the money or insurance coverage for this medications. Pt advised to address this with [facility] as outpatient. US negative for DVT. Niru Valdez MD
[2021-10-09] MEDS ORDERED: ONDANSETRON 4 MG/2 ML INJ ONE (17:53)
== END 2021-10-09 09:23 | disposition home or self-care (01) ==
LOC: TRG 19:21 → APU 19:22 → TRG 10-09 02:29 → LD 10-09 03:00
PROVIDERS: ADMIT Obstetrics & Gynecology; ATTEND Obstetrics & Gynecology
DX: O26.893 Other specified pregnancy related conditions, third trimester (principal); R10.9 Unspecified abdominal pain; O99.213 Obesity complicating pregnancy, third trimester; E66.01 Morbid (severe) obesity due to excess calories; Z3A.37 37 weeks gestation of pregnancy; Z98.891 History of uterine scar from previous surgery; Z87.891 Personal history of nicotine dependence; Z79.899 Other long term (current) drug therapy
CPT/HCPCS: 36415; 59025; 76816; 76819; 80053; 80307; 81001; 83615; 84550; 85025; 85379; 85610; 85730; 86850; 86900; 86901; 93970; 96360; G0378; J2405; J7120; 86920

== ENCOUNTER 2021-10-13 07:21 | Outpatient (CLI) | payer MEDICAID ==
[2021-10-13] MEDS ORDERED: ACETAMINOPHEN 500 MG TAB PO NR (08:46)
[2021-10-13] MEDS ORDERED: LACTATED RINGERS 1,000 ML IV ONE (09:00)
[2021-10-13 09:46] LABS: Bilirubin,Urine NEG (Negative); Blood,Urine NEG (Negative); Color,Urine Straw (Yellow); Protein,Urine <15 mg/dL mg/dL (Negative); Urobilinogen,Urine < 2.0 mg/dL (<2.0); WBC,Urine < 1.0 /HPF (0.0-6.0)
--- NOTE | 2021-10-13 11:03 | Ultrasound Report ---
ULTRASOUND OBSTETRIC LIMITED ULTRASOUND BIOPHYSICAL PROFILE INDICATION / CLINICAL INFORMATION: BPP, BRINA. Clinical Gestational Age (GA) in weeks, days: 37, 5 TECHNIQUE: Transabdominal. COMPARISON: None available. FINDINGS: BREATHING MOVEMENT = 2 GROSS BODY MOVEMENT = 2 TONE = 2 QUALITATIVE AMNIOTIC FLUID VOLUME = 2 TOTAL BIOPHYSICAL SCORE = 8/8 HEART RATE (beats per minute): 152 AMNIOTIC FLUID INDEX (cm) = 16.6 (normal = 7-24 cm) PRESENTATION: Cephalic. ADDITIONAL FINDINGS: No signs of dehiscence at scar. IMPRESSION: 1. Biophysical Score = 8/8 2. No signs of dehiscence at scar. Signer Name: Star Cuba DO Signed: 10/13/2021 10:58 AM Workstation Name: [id number]
[2021-10-13 11:54] VITALS: BP 120/61
== END 2021-10-13 12:20 | disposition home or self-care (01) ==
LOC: TRG 07:21 → APU 07:22 → TRG 12:20
PROVIDERS: ATTEND Obstetrics & Gynecology
DX: O62.9 Abnormality of forces of labor, unspecified (principal); O99.343 Other mental disorders complicating pregnancy, third trimester; F41.9 Anxiety disorder, unspecified; O99.213 Obesity complicating pregnancy, third trimester; O99.613 Diseases of the digestive system complicating pregnancy, third trimester; Z3A.37 37 weeks gestation of pregnancy; Z87.891 Personal history of nicotine dependence
CPT/HCPCS: 76815; 76819; 81001; 96360; J7120